=== PATIENT | male | born 2000 | race Caucasian/White ===

== ENCOUNTER 2020-01-02 13:40 | Emergency (ER) | payer OTHER ==
[~2020-01-02] VITALS: Ht 182.9 cm; Wt 58.1 kg
[2020-01-02] MEDS ORDERED: LIDOCAINE PAIN1 EACH TRANSDERM (15:30)
[2020-01-02] MEDS ORDERED: NORCO 5-325 TA1 EAC2 PO (15:30)
[2020-01-02 15:56] VITALS: BP 106/58
== END 2020-01-02 15:56 | disposition home or self-care (01) ==
LOC: ER 13:40
DX: S22.41XA Multiple fractures of ribs, right side, initial encounter for closed fracture (principal); W17.89XA Other fall from one level to another, initial encounter; Y93.89 Activity, other specified; Y92.89 Other specified places as the place of occurrence of the external cause; Y99.8 Other external cause status